=== PATIENT | male | born 1965 | race Caucasian/White ===

== ENCOUNTER 2020-07-07 12:12 | Outpatient (REF) | payer MEDICARE, MEDICAID, SELFPAY | END 2020-07-07 12:13 | disposition home or self-care (01) | LOC: HO.LAB 12:12 | PROVIDERS: PCP Internal Medicine; Visit Provider Internal Medicine | DX: Z20.822 Contact with and (suspected) exposure to COVID-19 (principal) | CPT/HCPCS: 36415; C9803; U0003 ==

== ENCOUNTER → 2020-11-10 10:44 | Outpatient (BNVA) | payer MEDICARE, MEDICAID, SELFPAY | PROVIDERS: PCP Internal Medicine; Visit Provider Internal Medicine | DX: B20 Human immunodeficiency virus [HIV] disease (principal); K75.9 Inflammatory liver disease, unspecified | CPT/HCPCS: 99202 ==

== ENCOUNTER 2021-05-11 11:02 | Outpatient (REF) | payer MEDICARE, MEDICAID, SELFPAY ==
[2021-05-11 12:30] LABS: MANUAL DIFF FLAG NO
[2021-05-11 13:13] LABS: Basophils Percent Auto 0.3 % (0-2); Eosinophils Percent Auto 0.4 % (0-4); Hematocrit 48.5 % (42.0-52.0); Hemoglobin 16.7 g/dl (14.0-18.0); Imm Gran Abs Auto 0.05 X10*3/uL (0.00-0.03); Imm Gran Pct Auto 0.5 % (0.0-0.4); Lymphocytes Absolute Auto 2.3 X10*3/uL (1.2-4.9); Lymphocytes Percent Auto 23.5 % (20-40); Mean Corpuscular HGB Conc 34.4 g/dl (31.0-36.0); Mean Corpuscular Hemoglobin 33.5 pg (27.0-33.0); Mean Corpuscular Volume 97.2 fL (80.0-98.0); Monocytes Absolute Auto 0.8 X10*3/uL (0.1-1.2); Monocytes Percent Auto 8.5 % (2-11); Neutrophils Absolute Auto 6.4 x10*3/uL (2.0-8.3); Neutrophils Percent Auto 66.8 % (45-73); Platelet Count 203 X10*3/uL (160-400); Red Blood Count 4.99 X10*6/uL (4.60-5.80); Red Cell Distribution Width 12.3 % (11.0-16.0); White Blood Count 9.7 X10*3/uL (4.8-10.8)
[2021-05-11 13:43] LABS: Anion Gap 14 (12-20); Blood Urea Nitrogen 11 mg/dL (9-16); Calcium 9.8 mg/dL (8.4-10.2); Carbon Dioxide 26 mmol/L (22-29); Chloride 104 mmol/L (96-108); Cholesterol 183 mg/dL; Estimated Glomerular Filt Rate > 60; Glucose Random 94 mg/dL (60-115); HDL Cholesterol 57 mg/dL; LDL Cholesterol Calculated 107 mg/dl; Potassium 4.2 mmol/L (3.3-5.1); Sodium 140 mmol/L (135-145); Triglycerides 98 mg/dL
[2021-05-11 14:04] LABS: Syphilis Screen Reactive (Nonreactive)
[2021-05-12 15:10] LABS: Absolute CD3 Count 1774 cells/uL (840-3060); Absolute CD4 Count 1015 cells/uL (490-1740); Absolute CD8 Count 704 cells/uL (180-1170); Absolute Lymphocytes 2533 cells/uL (850-3900); CD4 CD8 Ratio 1.44 (0.86-5.00); Percent CD3 Cells 70 % (57-85); Percent CD4 Cells 40 % (30-61); Percent CD8 Cells 28 % (12-42)
[2021-05-12 18:11] LABS: HIV RNA PCR Qn Copies <20 NOT DETECTED copies/mL (NOT DETECTED); HIV RNA PCR Qn Log Copies <1.30 NOT DETECTED (NOT DETECTED)
[2021-05-13 10:07] LABS: ~HepC Num1 0.06 S/CO (0.00-0.79); ~Hepatitis C Antibody Nonreactive (Nonreactive)
[2021-05-15 14:55] LABS: RPR Quantitative Non-Reactive (Nonreactive); T.Pallidum Particle Agg Test Reactive (Nonreactive)
[2021-05-19 02:22] LABS: FIB-ALT 49 U/L (9-46); FIB-Alpha-2-Macroglobulin 171 mg/dL (106-279); FIB-Apolipoprotein A1 172 mg/dL (94-176); FIB-GGT 60 U/L (3-85); FIB-Haptoglobin 68 mg/dL (43-212); FIB-Total Bilirubin 1.4 mg/dL (0.2-1.2); Liver Fibrosis Score 0.44; Liver Fibrosis Stage F1-F2; Nec Inflam Act Grade A1; Nec Inflam Act Score 0.33
== END 2021-05-11 11:03 | disposition home or self-care (01) ==
LOC: HO.LAB 11:02
PROVIDERS: PCP Internal Medicine; Visit Provider Internal Medicine
DX: B20 Human immunodeficiency virus [HIV] disease (principal); K75.9 Inflammatory liver disease, unspecified; Z22.7 Latent tuberculosis; Z86.19 Personal history of other infectious and parasitic diseases
CPT/HCPCS: 36415; 80048; 80061; 81596; 85025; 86359; 86360; 86592; 86780; 86803; 87536; 99212

== ENCOUNTER 2021-11-09 11:23 | Outpatient (REF) | payer MEDICARE, MEDICAID, SELFPAY ==
[2021-11-09 13:09] LABS: Hematocrit 48.9 % (42.0-52.0); Hemoglobin 17.1 g/dl (14.0-18.0); Mean Corpuscular Hemoglobin 33.5 pg (27.0-33.0); Mean Corpuscular Volume 95.9 fL (80.0-98.0); Mean Platelet Volume 11.5 fL (9.4-12.4); Platelet Count 207 X10*3/uL (160-400); Red Cell Distribution Width 12.1 % (11.0-16.0); White Blood Count 8.2 X10*3/uL (4.8-10.8)
[2021-11-09 13:41] LABS: Alanine Aminotransferase 64 U/L (0-40); Albumin Level 4.6 g/dL (3.5-5.0); Alkaline Phosphatase 71 U/L (39-117); Anion Gap 13 (12-20); Aspartate Amino Transferase 42 U/L (5-37); Bilirubin Direct 0.6 mg/dL (0.0-0.5); Bilirubin Total 2.1 mg/dL (0.0-1.0); Blood Urea Nitrogen 13 mg/dL (9-16); Carbon Dioxide 25 mmol/L (22-29); Chloride 104 mmol/L (96-108); Estimated Glomerular Filt Rate > 60; Glucose Random 92 mg/dL (60-115); Potassium 4.2 mmol/L (3.3-5.1); Sodium 138 mmol/L (135-145); Total Protein 7.4 g/dL (6.5-8.0)
[2021-11-09 13:53] LABS: Syphilis Screen Reactive (Nonreactive)
[2021-11-09 16:12] LABS: CT PCR NOT DETECTED (Not Detect.); NG PCR NOT DETECTED (Not Detect.)
[2021-11-10 05:36] LABS: ~HepC Num1 0.09 S/CO (0.00-0.79); ~Hepatitis C Antibody Nonreactive (Nonreactive)
[2021-11-11 14:31] LABS: HIV RNA PCR Qn Copies NOT DETECTED copies/mL (NOT DETECTED); HIV RNA PCR Qn Log Copies NOT DETECTED (NOT DETECTED)
[2021-11-11 16:16] LABS: Absolute CD3 Count 1559 cells/uL (840-3060); Absolute CD4 Count 984 cells/uL (490-1740); Absolute CD8 Count 566 cells/uL (180-1170); Absolute Lymphocytes 2214 cells/uL (850-3900); CD4 CD8 Ratio 1.74 (0.86-5.00); Percent CD3 Cells 70 % (57-85); Percent CD4 Cells 44 % (30-61); Percent CD8 Cells 26 % (12-42)
[2021-11-13 13:42] LABS: RPR Quantitative Non-Reactive (Nonreactive)
[2021-11-13 13:44] LABS: T.Pallidum Particle Agg Test Reactive (Nonreactive)
[2021-11-16 15:36] LABS: FIB-ALT 58 U/L (9-46); FIB-Alpha-2-Macroglobulin 182 mg/dL (106-279); FIB-Apolipoprotein A1 209 mg/dL (94-176); FIB-GGT 49 U/L (3-85); FIB-Haptoglobin 46 mg/dL (43-212); FIB-Total Bilirubin 1.6 mg/dL (0.2-1.2); Liver Fibrosis Score 0.42; Liver Fibrosis Stage F1-F2; Nec Inflam Act Grade A1-A2; Nec Inflam Act Score 0.39
== END 2021-11-09 11:24 | disposition home or self-care (01) ==
LOC: HO.LAB 11:23
PROVIDERS: PCP Family Medicine; Visit Provider Internal Medicine
DX: B20 Human immunodeficiency virus [HIV] disease (principal); K75.9 Inflammatory liver disease, unspecified; Z86.19 Personal history of other infectious and parasitic diseases
CPT/HCPCS: 36415; 80048; 80076; 81596; 85027; 86359; 86360; 86592; 86780; 86803; 87491; 87536; 87591; 99212

== ENCOUNTER 2022-05-07 08:50 | Outpatient (REF) | payer MEDICARE, MEDICAID, SELFPAY ==
[2022-05-07 10:16] LABS: ~HepC Num1 0.07 S/CO (0.00-0.79); ~Hepatitis C Antibody Nonreactive (Nonreactive)
[2022-05-07 10:48] LABS: Syphilis Screen Reactive (Nonreactive)
[2022-05-11 16:12] LABS: Absolute CD3 Count 1341 cells/uL (840-3060); Absolute CD4 Count 680 cells/uL (490-1740); Absolute CD8 Count 618 cells/uL (180-1170); Absolute Lymphocytes 2161 cells/uL (850-3900); Percent CD3 Cells 62 % (57-85); Percent CD4 Cells 31 % (30-61); Percent CD8 Cells 29 % (12-42)
[2022-05-11 20:27] LABS: HIV RNA PCR Qn Copies NOT DETECTED copies/mL (NOT DETECTED); HIV RNA PCR Qn Log Copies NOT DETECTED (NOT DETECTED)
[2022-05-13 11:31] LABS: RPR Quantitative Non-Reactive (Nonreactive); T.Pallidum Particle Agg Test Reactive (Nonreactive)
== END 2022-05-07 08:51 | disposition home or self-care (01) ==
LOC: HO.LAB 08:50
PROVIDERS: Visit Provider Internal Medicine
DX: B20 Human immunodeficiency virus [HIV] disease (principal)
CPT/HCPCS: 36415; 86359; 86360; 86592; 86780; 86803; 87536

== ENCOUNTER → 2022-05-17 10:43 | Outpatient (BNVA) | payer MEDICARE, MEDICAID, SELFPAY | PROVIDERS: PCP Family Medicine; Visit Provider Internal Medicine | DX: B20 Human immunodeficiency virus [HIV] disease (principal) | CPT/HCPCS: 99212 ==

== ENCOUNTER 2022-10-26 10:24 | Outpatient (REF) | payer MEDICARE, MEDICAID, SELFPAY ==
[2022-10-26 10:46] LABS: MANUAL DIFF FLAG NO
[2022-10-26 11:42] LABS: Basophils Percent Auto 0.6 % (0-2); Eosinophils Absolute Auto 0.2 X10*3/uL (0.0-0.4); Eosinophils Percent Auto 3.3 % (0-4); Hematocrit 48.2 % (42.0-52.0); Hemoglobin 16.7 g/dl (14.0-18.0); Imm Gran Abs Auto 0.05 X10*3/uL (0.00-0.03); Imm Gran Pct Auto 0.8 % (0.0-0.4); Lymphocytes Absolute Auto 1.6 X10*3/uL (1.2-4.9); Lymphocytes Percent Auto 25.5 % (20-40); Mean Corpuscular HGB Conc 34.6 g/dl (31.0-36.0); Mean Corpuscular Volume 98.2 fL (80.0-98.0); Mean Platelet Volume 11.3 fL (9.4-12.4); Monocytes Absolute Auto 0.6 X10*3/uL (0.1-1.2); Neutrophils Absolute Auto 3.9 x10*3/uL (2.0-8.3); Neutrophils Percent Auto 60.8 % (45-73); Platelet Count 220 X10*3/uL (160-400); Red Blood Count 4.91 X10*6/uL (4.60-5.80); Red Cell Distribution Width 12.5 % (11.0-16.0); White Blood Count 6.4 X10*3/uL (4.8-10.8)
[2022-10-26 12:29] LABS: Alanine Aminotransferase 66 U/L (0-40); Albumin Level 4.3 g/dL (3.5-5.0); Alkaline Phosphatase 79 U/L (39-117); Anion Gap 9 (12-20); Aspartate Amino Transferase 61 U/L (5-37); Bilirubin Direct 0.5 mg/dL (0.0-0.5); Bilirubin Total 1.9 mg/dL (0.0-1.0); Blood Urea Nitrogen 10 mg/dL (9-16); Calcium 9.6 mg/dL (8.4-10.2); Carbon Dioxide 27 mmol/L (22-29); Chloride 107 mmol/L (96-108); Estimated Glomerular Filt Rate > 60; Glucose Random 98 mg/dL (60-115); Potassium 4.2 mmol/L (3.3-5.1); Sodium 139 mmol/L (135-145)
[2022-10-26 14:14] LABS: CT PCR NOT DETECTED (Not Detect.); NG PCR NOT DETECTED (Not Detect.)
[2022-10-27 04:22] LABS: Syphilis Screen Reactive (Nonreactive)
[2022-10-27 04:35] LABS: ~HepC Num1 0.08 S/CO (0.00-0.79); ~Hepatitis C Antibody Nonreactive (Nonreactive)
[2022-10-27 12:19] LABS: Absolute CD3 Count 1126 cells/uL (840-3060); Absolute CD4 Count 661 cells/uL (490-1740); Absolute CD8 Count 438 cells/uL (180-1170); Absolute Lymphocytes 1710 cells/uL (850-3900); CD4 CD8 Ratio 1.51 (0.86-5.00); Percent CD3 Cells 66 % (57-85); Percent CD4 Cells 39 % (30-61); Percent CD8 Cells 26 % (12-42)
[2022-10-28 21:09] LABS: HIV RNA PCR Qn Copies NOT DETECTED copies/mL (NOT DETECTED); HIV RNA PCR Qn Log Copies NOT DETECTED (NOT DETECTED)
[2022-10-30 14:24] LABS: RPR Quantitative Non-Reactive (Nonreactive); T.Pallidum Particle Agg Test Reactive (Nonreactive)
== END 2022-10-26 10:25 | disposition home or self-care (01) ==
LOC: HO.LAB 10:24
PROVIDERS: Visit Provider Internal Medicine
DX: B20 Human immunodeficiency virus [HIV] disease (principal)
CPT/HCPCS: 0353U; 36415; 80048; 80076; 85025; 86359; 86360; 86592; 86780; 86803; 87536

== ENCOUNTER → 2022-11-15 11:00 | Outpatient (BNVA) | payer MEDICARE, MEDICAID, SELFPAY | PROVIDERS: PCP Family Medicine; Visit Provider Internal Medicine | DX: B20 Human immunodeficiency virus [HIV] disease (principal); Z79.899 Other long term (current) drug therapy | CPT/HCPCS: 99212 ==

== ENCOUNTER 2023-05-04 13:02 | Outpatient (REF) | payer MEDICARE, MEDICAID, SELFPAY ==
[2023-05-05 05:13] LABS: Syphilis Screen Reactive (Nonreactive)
[2023-05-05 10:03] LABS: Absolute CD3 Count 1499 cells/uL (840-3060); Absolute CD4 Count 829 cells/uL (490-1740); Absolute CD8 Count 653 cells/uL (180-1170); Absolute Lymphocytes 2293 cells/uL (850-3900); CD4 CD8 Ratio 1.27 (0.86-5.00); Percent CD3 Cells 65 % (57-85); Percent CD4 Cells 36 % (30-61); Percent CD8 Cells 28 % (12-42)
[2023-05-11 09:03] LABS: HIV RNA PCR Qn Copies NOT DETECTED copies/mL (NOT DETECTED); HIV RNA PCR Qn Log Copies NOT DETECTED (NOT DETECTED)
[2023-05-12 15:20] LABS: RPR Quantitative Non-Reactive (Nonreactive); T.Pallidum Particle Agg Test Reactive (Nonreactive)
== END 2023-05-04 13:03 | disposition home or self-care (01) ==
LOC: HO.LAB 13:02
PROVIDERS: PCP Family Medicine; Visit Provider Internal Medicine
DX: B20 Human immunodeficiency virus [HIV] disease (principal); Z20.2 Contact with and (suspected) exposure to infections with a predominantly sexual mode of transmission
CPT/HCPCS: 36415; 86359; 86360; 86592; 86780; 87536

== ENCOUNTER 2023-05-11 11:30 | Outpatient (AMB) | payer MEDICARE, MEDICAID, SELFPAY ==
[2023-05-11 11:27] VITALS: PULSE 88; O2SAT 97; BMI 28.4
--- NOTE | 2023-05-11 11:27 | MHC.OFFVIS ---
Intake Vital Signs 05/11/23 11:27 Height 5 ft 10 in Weight 198 lb BMI 28.4 Pulse 88 Pulse Source Pulse Oximeter Pulse Oximetry (%) 97 Oxygen Delivery Method Room Air Intake Visit Reasons: F/U, 6 mth lab/HIV Allergies amlodipine [From [facility]] Allergy (Mild, Verified 05/11/23 11:34) EDEMA atazanavir Adverse Reaction (Verified 05/11/23 11:34) jaundice efavirenz Adverse Reaction (Verified 05/11/23 11:34) encephalopathy isoniazid Adverse Reaction (Verified 05/11/23 11:34) rash raltegravir Adverse Reaction (Verified 05/11/23 11:34) diarrhea From CARDIZ[facility] Allergy (Mild, Uncoded 03/13/20 17:07) EDEMA HPI F/U, 6 mth lab/HIV HPI Details He has some depression. He has been HIV medication. [facility] [place] Medical History H/O syphilis Hepatitis Anal fistula Rectal prolapse Pulmonary embolism and infarction Latent tuberculosis Irritable bowel syndrome with both constipation and diarrhea Hyperlipidemia Human papilloma virus H/O syphilis Grief reaction with prolonged bereavement Gout Thoracic spine fracture Cervical spine fracture Antiphospholipid antibody with hypercoagulable state Anti-phospholipid antibody syndrome HIV (human immunodeficiency virus infection) Surgical History S/P left knee arthroscopy Family History Mother Alcohol use disorder Father Melanoma Alcohol intake: current Current occupation: retired nurse Review of Systems Const All systems reviewed & are unremarkable except as noted in HPI and below Physical Exam Vital Signs: Last Vital Signs Pulse 88 05/11/23 11:27 Pulse Ox 97 05/11/23 11:27 Oxygen Delivery Method Room Air 05/11/23 11:27 BMI result Body Mass Index 28.4 Const General: cooperative Orientation/consciousness: patient oriented x3 HEENT Head: Yes normal to inspection Mouth: Normal oral and palatal mucosa present Eyes General: appearance normal, both eyes and all related structures Pupils: Equal, round and reactive pupils present Resp Effort & Inspection: normal respiratory effort Cardio Rate: regular rate Rhythm: regular rhythm GI Palpation (GI): Soft to palpation and nontender General: Yes no CVA tenderness Back/Spine/Pelvis Back: no CVA tenderness Skin General skin exam: no rashes or lesions noted Neuro General: patient oriented x3 Cranial nerves: Yes CN's II-XII intact bilaterally and Yes Equal, round and reactive pupils present Extrem General: Yes normal to inspection Psych Appearance: grossly normal Assessment & Plan Assessment & Plan (1) HIV (human immunodeficiency virus infection): Comment: He has viral load undetectable. He has no concerns and is taking Odefsey. Code(s): B20 - Human immunodeficiency virus [HIV] disease Plan: Continue treatment. Check viral load and CD4 count in six months. See in six months. Coding Level of Care Code Est Pt Level 3 (25230) Diagnoses HIV (human immunodeficiency virus infection) B20
== END 2023-05-11 12:03 | disposition home or self-care (01) ==
PROVIDERS: PCP Family Medicine; Visit Provider Internal Medicine
DX: B20 Human immunodeficiency virus [HIV] disease (principal)
CPT/HCPCS: 99213

== ENCOUNTER → 2023-05-11 11:30 | Outpatient (BNVA) | payer MEDICARE, MEDICAID, SELFPAY | PROVIDERS: Visit Provider Internal Medicine | DX: B20 Human immunodeficiency virus [HIV] disease (principal) | CPT/HCPCS: 99212 ==

== ENCOUNTER 2024-06-06 15:05 | Outpatient (REF) | payer MEDICARE, MEDICAID, SELFPAY ==
[2024-06-08 19:14] LABS: HIV RNA PCR Qn Copies <20 DETECTED copies/mL (NOT DETECTED); HIV RNA PCR Qn Log Copies <1.30 DETECTED (NOT DETECTED)
[2024-06-12 15:27] LABS: Absolute CD3 Count 1691 cells/uL (840-3060); Absolute CD4 Count 677 cells/uL (490-1740); Absolute CD8 Count 931 cells/uL (180-1170); Absolute Lymphocytes 2704 cells/uL (850-3900); CD4 CD8 Ratio 0.73 (0.86-5.00); Percent CD3 Cells 63 % (57-85); Percent CD4 Cells 25 % (30-61); Percent CD8 Cells 34 % (12-42)
== END 2024-06-06 15:06 | disposition home or self-care (01) ==
LOC: HO.LAB 15:05
PROVIDERS: PCP Family Medicine; Visit Provider Internal Medicine
DX: B20 Human immunodeficiency virus [HIV] disease (principal)
CPT/HCPCS: 36415; 86359; 86360; 87536

== ENCOUNTER 2024-06-13 13:29 | Outpatient (AMB) | payer MEDICARE, MEDICAID, SELFPAY ==
--- NOTE | 2024-06-13 13:40 | A.OFFVIS_ITS ---
Vital Signs 06/13/24 13:44 Height 5 ft 10 in Weight 210 lb BMI 30.1 Pulse 96 Pulse Source Pulse Oximeter Pulse Oximetry (%) 96 Oxygen Delivery Method Room Air Intake Visit Reasons: hiv labs follow up Allergies amlodipine [From [facility]] Allergy (Mild, Verified 06/13/24 13:45) EDEMA atazanavir Adverse Reaction (Verified 06/13/24 13:45) jaundice efavirenz Adverse Reaction (Verified 06/13/24 13:45) encephalopathy isoniazid Adverse Reaction (Verified 06/13/24 13:45) rash raltegravir Adverse Reaction (Verified 06/13/24 13:45) diarrhea From CARDIZEM Allergy (Mild, Uncoded 03/13/20 17:07) EDEMA HPI HPI hiv labs follow up: Details: He has CD4 count 1217 and viral load undetectable. He is depressed and getting counseling and not suicidal or homicidal. He has [facility] appt and is upset about scheduling appointements he doesnt want to come because depressed. 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 bowel syndrome with both constipation and diarrhea Hyperlipidemia Human papilloma virus H/O syphilis Grief reaction with prolonged bereavement Gout Thoracic spine fracture Cervical spine fracture Antiphospholipid antibody with hypercoagulable state Anti-phospholipid antibody syndrome HIV (human immunodeficiency virus infection) Surgical History S/P left knee arthroscopy Family History Mother Alcohol use disorder Father Melanoma Social History Alcohol intake: current Current occupation: retired nurse Review of Systems Const All systems reviewed & are unremarkable except as noted in HPI and below Physical Exam Vital Signs: Last Vital Signs Pulse 96 06/13/24 13:44 Pulse Ox 96 06/13/24 13:44 Oxygen Delivery Method Room Air 06/13/24 13:44 BMI result Body Mass Index 30.1 Const General: cooperative Orientation/consciousness: patient oriented x3 HEENT Head: Yes normal to inspection Mouth: Normal oral and palatal mucosa present Eyes General: appearance normal, both eyes and all related structures Pupils: Equal, round and reactive pupils present Resp Effort & Inspection: normal respiratory effort Cardio Rate: regular rate Rhythm: regular rhythm GI Palpation (GI): Soft to palpation and nontender General: Yes no CVA tenderness Back/Spine/Pelvis Back: no CVA tenderness Skin General skin exam: no rashes or lesions noted Neuro General: patient oriented x3 Cranial nerves: Yes CN's II-XII intact bilaterally and Yes Equal, round and reactive pupils present Extrem General: Yes normal to inspection Psych Appearance: grossly normal Assessment & Plan Assessment & Plan (1) HIV (human immunodeficiency virus infection): Comment: He has viral load undetectable. He has no concerns and is taking Odefsey. Code(s): B20 - Human immunodeficiency virus [HIV] disease Category: Medical Plan: check boaz; load and CD4 count in six months. Continue Odefsey. Coding Level of Care Code Est Pt Level 3 (04952) Diagnoses HIV (human immunodeficiency virus infection) B20
[2024-06-13 13:44] VITALS: PULSE 96; O2SAT 96; BMI 30.1
== END 2024-06-13 15:58 | disposition home or self-care (01) ==
PROVIDERS: PCP Family Medicine; Visit Provider Internal Medicine
DX: B20 Human immunodeficiency virus [HIV] disease (principal)
CPT/HCPCS: 99213

== ENCOUNTER → 2024-06-13 13:29 | Outpatient (BNVA) | payer MEDICARE, MEDICAID, SELFPAY | PROVIDERS: PCP Family Medicine; Visit Provider Internal Medicine | DX: B20 Human immunodeficiency virus [HIV] disease (principal) | CPT/HCPCS: 99212 ==